=== PATIENT | male | born 1955 | race Caucasian/White ===

== ENCOUNTER 2017-09-06 11:54 | Day surgery (SDC) | payer MEDICAID ==
[2017-09-06 13:15] VITALS: PULSE 62
--- NOTE | 2017-09-06 13:16 | PDANEPAE ---
ANE Past Medical History - Cardiovascular History Hx Hypertension: No Hx Arrhythmias: No Hx Chest Pain: No Hx Coronary Artery / Peripheral Vascular Disease: No Hx CHF / Valvular Disease: No Hx Palpitations: No - Pulmonary History Hx COPD: No Hx Asthma/Reactive Airway Disease: No Hx Recent Upper Respiratory Infection: No Hx Oxygen in Use at Home: No Hx Sleep Apnea: Yes Sleep Apnea Screening Result - Last Documented: Positive - Neurologic History Hx Cerebrovascular Accident: No Hx Seizures: No Hx Dementia: No - Endocrine History Hx Diabetes: Yes - Renal History Hx Renal Disorders: No - Liver History Hx Hepatic Disorders: No - Neurological & Psychiatric Hx Hx Neurological and Psychiatric Disorders: Yes Neurological / Psychiatric History Comment: depression - Cancer History Hx Cancer: No - GI History Hx Gastrointestinal Disorders: No - Other Health History Other Health History: none - Chronic Pain History Chronic Pain: Yes (back) - Surgical History Prior Surgeries: none ANE Review of Systems Review of Systems: - Exercise capacity METS (RN): 4 METS ANE Patient History - Allergies Allergies/Adverse Reactions: No Known Allergies Allergy (Verified 08/10/17 11:14) - Home Medications Home Medications: Abilify 08/10/17 [Last Taken 09/05/17 18:00] Adderall 10 mg Tablet 08/10/17 [Last Taken 09/05/17 14:00] Diazepam 08/10/17 [Last Taken 09/05/17 18:00] Lamictal 08/10/17 [Last Taken 09/05/17 18:00] Latuda 08/10/17 [Last Taken 09/05/17 08:00] Metformin HCl 08/10/17 [Last Taken 09/04/17] Simvastatin 08/10/17 [Last Taken 09/05/17 18:00] Diclofenac Sodium 09/06/17 [Last Taken 08/23/17] Methocarbamol 09/06/17 [Last Taken 09/05/17 07:30] Saphris 09/06/17 [Last Taken 09/05/17 18:00] - NPO status NPO Since - Liquids (Date): 09/06/17 NPO Since - Liquids (Time): 10:30 NPO Since - Solids (Date): 09/05/17 NPO Since - Solids (Time): 07:30 - Smoking Hx Smoking Status: Former smoker - Family Anes Hx Family Hx Anesthesia Complications: none ANE Labs/Vital Signs - Vital Signs Blood Pressure: 113/70 Heart Rate: 62 Respiratory Rate: 20 O2 Sat (%): 95 Height: 180.34 cm Weight: 90.718 kg ANE Physical Exam - Airway Neck exam: FROM Mallampati Score: Class 2 Mouth exam: dentures - Pulmonary Pulmonary: no respiratory distress - Cardiovascular Cardiovascular: regular rate and rhythym - ASA Status ASA Status: II ANE Anesthesia Plan Total IV Anesthesia: Yes
[2017-09-06] MEDS ORDERED: fentaNYL 100 MCG/2 ML INJ ONE (13:20)
[2017-09-06] MEDS ORDERED: PROPOFOL/EMULSION 500 MG/50 ML BOTTLE IV ONE (13:20)
[2017-09-06] MEDS ORDERED: ALBUTEROL 3 ML DEYVIAL IH PRN (13:58)
[2017-09-06] MEDS ORDERED: NALOXONE HCL 0.4 MG/ML INJ IVP PRN (13:58)
--- NOTE | 2017-09-06 13:59 | POSTANESTH ---
Post Anesthetic Evaluation Cardiovascular Status: Similar to Pre-Op Cond Respiratory Status: Similar to Pre-op Cond. Level of Consciousness/Mental Status: Mildly Sleepy, Arousable Pain Control: Adequate, Prn Tx Ordered Nausea/Vomiting Control: Adequate, Prn Tx Ordered Complications Possibly Related to Anesthesia: None Noted
[2017-09-06 14:03] VITALS: TEMP 97.3
--- NOTE | 2017-09-06 14:06 | PDHPUP ---
History & Physical Update H&P update statement: This history and physical update is based on an assessment of the patient which was completed after admission or registration (within 24 hours), but prior to the surgery/procedure. H&P update: H&P reviewed & patient examined, no change in patient's condition since H&P completed
--- NOTE | 2017-09-06 14:07 | POSTOPPROG ---
Post Op Note Date of Operation: 09/06/17 Surgeon: Gideon Rubalcava Anesthesia: IV Sedation Pre-op Diagnosis: screening Post-op Diagnosis: cecal polyp Inf/Abcess present in the surg proc area at time of surgery?: No
--- NOTE | 2017-09-06 14:11 | GIREPORT ---
[facility] - Endoscopy Department Patient Name: Preet Colin Procedure Date: 09/06/2017 1:31 PM Patient Type: Outpatient Attending / ER Physician: Gideon Rubalcava MD Procedure: Colonoscopy Indications: Screening for colorectal malignant neoplasm Providers: Gideon Rubalcava MD Medicines: Propofol per Anesthesia Complications: No immediate complications. Description of Procedure: After obtaining informed consent, the scope was passed under direct vis ion. Throughout the procedure, the patient's blood pressure, pulse, and oxyg en saturations were monitored continuously. The Colonoscope was introduced through the anus and advanced to the terminal ileum. The colonoscopy wa s performed without difficulty. The patient tolerated the procedure well. The quality of the bowel preparation was excellent. Findings: A 5 mm polyp was found in the cecum. The polyp was sessile. The polyp w as removed with a cold snare. Resection and retrieval were complete. No biopsies or other specimens were collected for this exam. The exam was otherwise without abnormality. Estimated Blood Loss: Estimated blood loss: none. Post Op Diagnosis: - One 5 mm polyp in the cecum, removed with a cold snare. Resected and retrieved. No specimens collected. - The examination was otherwise normal. Recommendation: - Discharge patient to home. - Resume previous diet. - Continue present medications. Attending Participation: I personally performed the entire procedure. Gideon Rubalcava MD Gideon Rubalcava MD 09/06/2017 2:11:14 PM This report has been signed electronicallyRobbrook Rubalcava MD Number of Addenda: 0 Note Initiated On: 09/06/2017 1:31 PM Total Procedure Duration Time 0 hours 16 minutes 3 seconds [email or web address]
[2017-09-06 14:44] VITALS: O2SAT 96
[2017-09-06 14:53] VITALS: BP 114/68
[2017-09-06 15:25] VITALS: RESP 16
== END 2017-09-06 14:59 | disposition home or self-care (01) ==
LOC: FSGY 11:54
PROVIDERS: ATTEND Internal Medicine Gastroenterology
PROC: 0DBH8ZX Excision of Cecum, Via Natural or Artificial Opening Endoscopic, Diagnostic (ICD-10-PCS; principal; 2017-09-06 13:45)
DX: D12.0 Benign neoplasm of cecum (principal); E11.69 Type 2 diabetes mellitus with other specified complication; E78.5 Hyperlipidemia, unspecified; G47.33 Obstructive sleep apnea (adult) (pediatric); F31.9 Bipolar disorder, unspecified
CPT/HCPCS: J2704; J3010